=== PATIENT | female | born 1955 | race Caucasian/White ===

== ENCOUNTER 2021-01-18 18:58 | Inpatient (IN) | payer MEDICARE ==
[2021-01-18] MEDS ORDERED: Haloperidol Lactate 5 MG/ML SDV IVPUSH ONE (19:53)
[2021-01-18] MEDS ORDERED: Sodium Chloride 0.9% 10 ML Syringe FLUSH PRN (19:53)
[2021-01-18] MEDS ORDERED: Lactated Ringers 1,000 ML IV SCH (20:00)
--- NOTE | 2021-01-18 20:36 | EDM.PDOC ---
ED HPI GENERAL MEDICAL PROBLEM - General Chief Complaint: Wound Recheck Stated Complaint: NAUSEA AND PAIN Time Seen by Provider: 01/18/21 19:52 Source of Information: Reports: Patient History Limitations: Reports: No Limitations - History of Present Illness INITIAL COMMENTS - FREE TEXT/NARRATIVE: Lydia is a 65-year-old female presenting to the ED with intractable dry heaving starting at 1500 hrs. today. Patient's trouble started a week ago when she underwent a colonoscopy last and unfortunately had a perforation of the bowel. She was taken to the OR for exploratory laparotomy and repair of the perforation and a YURI drain was placed in close proximity. The patient reports that today she has had marked increase in serosanguineous drainage from the YURI drain as well as increasing abdominal pain and dry heaving. She is scheduled for a follow-up with Dr. Dos Santos on Friday. Upon arrival to the ED she was dry heaving tenuously, but has not had any emesis. She has been taking oral pain medicine. The patient is currently afebrile. Lower Abdomen Pain Score (Numeric/FACES): 8 - Related Data Allergies Allergy/AdvReac Type Severity Reaction Status Date / Time cat dander Allergy Sneezing Verified 01/18/21 19:34 dust mite Allergy Sneezing Uncoded 01/18/21 19:34 Home Meds: Home Meds Albuterol/Ipratropium [Combivent Respimat] 1 puff INH Q6HR PRN 03/26/19 [History] Furosemide 20 mg PO BID 03/26/19 [History] Levothyroxine Sodium [Synthroid] 150 mcg PO DAILY 03/26/19 [History] Spironolactone [Aldactone] 25 mg PO DAILY 03/26/19 [History] carvediloL [Carvedilol] 25 mg PO BID 03/26/19 [History] Albuterol/Ipratropium [DuoNeb 3.0-0.5 MG/3 ML] 1 dose IH Q6HR PRN 01/08/21 [History] atorvaSTATin [Lipitor] 10 mg PO BEDTIME 01/08/21 [History] lisinopriL [Lisinopril] 1.25 mg PO DAILY 01/08/21 [History] Past Medical History HEENT History: Reports: Impaired Vision Cardiovascular History: Reports: Cardiomyopathy, High Cholesterol, Hypertension, Pacemaker Respiratory History: Reports: COPD Gastrointestinal History: Reports: Chronic Constipation Genitourinary History: Reports: None VASCULAR NEUROLOGIST History: Reports: Musculoskeletal History: Reports: None Endocrine/Metabolic History: Reports: Hypothyroidism - Infectious Disease History Infectious Disease History: Reports: Chicken Pox, Measles, Mumps, Shingles - Past Surgical History HEENT Surgical History: Reports: Oral Surgery Cardiovascular Surgical History: Reports: Pacer Respiratory Surgical History: Reports: None GI Surgical History: Reports: Colonoscopy, Hernia, Inguinal Other GI Surgeries/Procedures: colon perforation Female Surgical History: Reports: Tubal Ligation Endocrine Surgical History: Reports: None Musculoskeletal Surgical History: Reports: Shoulder Replacement Social & Family History - Tobacco Use Tobacco Use Status *Q: Never Tobacco User - Caffeine Use Caffeine Use: Reports: None - Recreational Drug Use Recreational Drug Use: No ED ROS GENERAL - Review of Systems Review Of Systems: See Below Constitutional: Reports: Decreased Appetite HEENT: Reports: No Symptoms Respiratory: Reports: No Symptoms Cardiovascular: Reports: No Symptoms Endocrine: Reports: No Symptoms GI/Abdominal: Reports: Abdominal Pain, Decreased Appetite, Nausea, Vomiting (Dry heaving without emesis), Other (Patient has had 2 loose bowel movements today.) : Reports: No Symptoms Musculoskeletal: Reports: No Symptoms Skin: Reports: No Symptoms Neurological: Reports: No Symptoms Psychiatric: Reports: No Symptoms Hematologic/Lymphatic: Reports: No Symptoms Immunologic: Reports: No Symptoms ED EXAM, GENERAL - Physical Exam Exam: See Below Exam Limited By: No Limitations General Appearance: Alert, Anxious, Moderate Distress Eye Exam: Bilateral Eye: EOMI, PERRL Throat/Mouth: Normal Inspection, Normal Oropharynx, Normal Voice, No Airway Compromise Head: Atraumatic, Normocephalic Neck: Normal Inspection, Supple. No: Lymphadenopathy (R), Lymphadenopathy (L) Respiratory/Chest: No Respiratory Distress, Lungs Clear, Normal Breath Sounds Cardiovascular: Normal Peripheral Pulses, Regular Rate, Rhythm Peripheral Pulses: 2+: Radial (L), Radial (R), Posterior Tibial (L), Posterior Tibial (R) GI/Abdominal: Normal Bowel Sounds, Soft, Guarding, Tender (Diffuse abdominal tenderness), Other (Dressing around the YURI is soiled with serosanguineous fluid. Midline incision of the abdomen is clean, dry, intact). No: Rebound Back Exam: Normal Inspection Extremities: Normal Inspection Neurological: Alert, Oriented, Normal Cognition, No Motor/Sensory Deficits Psychiatric: Normal Affect Skin Exam: Warm, Dry, Wound/Incision (Abdominal incision is clean, dry, intact. YURI drain has serosanguineous drainage in the bulb and on the dressing.) Lymphatic: No Adenopathy Course - Vital Signs Last Recorded V/S: Last Vital Signs Temp 35.9 C L 01/18/21 19:26 Pulse 80 01/18/21 19:26 Resp 20 01/18/21 19:26 BP 136/77 01/18/21 19:26 Pulse Ox 97 01/18/21 19:26 - Orders/Labs/Meds Orders: Active Orders 24 hr Category Date Time Status Lactated Ringers [Ringers, Lactated] 1,000 ml Med 01/18/21 20:00 Active IV ASDIRECTED Sodium Chloride 0.9% [Saline Flush] Med 01/18/21 19:53 Active 10 ml FLUSH ASDIRECTED PRN Saline Lock Insert [OM.PC] Routine Oth 01/18/21 19:53 Ordered Medication Orders Lactated Ringer's (Ringers, Lactated) 1,000 mls @ 999 mls/hr IV ASDIRECTED ADE Last Admin: 01/18/21 20:08 Dose: 999 mls/hr Documented by: JUDAH Sodium Chloride (Sodium Chloride 0.9% 10 Ml Syringe) 10 ml FLUSH ASDIRECTED PRN PRN Reason: Keep Vein Open Last Admin: 01/18/21 20:08 Dose: 10 ml Documented by: JUDAH Labs: Laboratory Tests 01/18/21 01/18/21 Range/Units 20:09 20:09 WBC 15.3 H (4.5-11.0) K/uL RBC 4.10 (3.30-5.50) M/uL Hgb 13.0 (12.0-15.0) g/dL Hct 39.7 (36.0-48.0) % MCV 97 (80-98) fL MCH 32 H (27-31) pg MCHC 33 (32-36) % Plt Count 530 H (150-400) K/uL Neut % (Auto) 87.6 H (36-66) % Lymph % (Auto) 6.4 L (24-44) % [place] % (Auto) 5.8 (2-6) % Eos % (Auto) 0.1 L (2-4) % Baso % (Auto) 0.1 (0-1) % Sodium 139 L (140-148) mmol/L Potassium 3.6 (3.6-5.2) mmol/L Chloride 98 L (100-108) mmol/L Carbon Dioxide 30 (21-32) mmol/L Anion Gap 14.6 H (5.0-14.0) mmol/L BUN 11 (7-18) mg/dL Creatinine 1.0 (0.6-1.0) mg/dL Est Cr Clr Drug Dosing 48.43 mL/min Estimated GFR (MDRD) 56 L (>60) Glucose 155 H (74-106) mg/dL Calcium 8.9 (8.5-10.1) mg/dL Total Bilirubin 0.7 (0.2-1.0) mg/dL AST 16 (15-37) U/L ALT 15 (12-78) U/L Alkaline Phosphatase 86 (46-116) U/L C-Reactive Protein 23.90 H (0.0-0.3) mg/dL Total Protein 6.5 (6.4-8.2) g/dL Albumin 2.5 L (3.4-5.0) g/dL Globulin 4.0 H (2.3-3.5) g/dL Albumin/Globulin Ratio 0.6 L (1.2-2.2) Lipase 53 L (73-393) U/L Meds: Medications Generic Name Dose Route Start Last Admin Trade Name Freq PRN Reason Stop Dose Admin Lactated Ringer's 1,000 mls @ 999 mls/hr 01/18/21 20:00 01/18/21 20:08 Ringers, Lactated IV 999 mls/hr ASDIRECTED ADE Administration Sodium Chloride 10 ml 01/18/21 19:53 01/18/21 20:08 Sodium Chloride 0.9% 10 Ml Syringe FLUSH 10 ml ASDIRECTED PRN Administration Keep Vein Open Discontinued Medications Generic Name Dose Route Start Last Admin Trade Name Freq PRN Reason Stop Dose Admin Haloperidol Lactate 5 mg 01/18/21 19:53 01/18/21 20:08 Haloperidol Lactate 5 Mg/Ml Sdv IVPUSH 01/18/21 19:54 5 mg ONETIME ONE Administration - Re-Assessments/Exams Free Text/Narrative Re-Assessment/Exam: 01/18/21 21:02 I discussed the case with Dr. Dos Santos who will admit the patient and follow-up with her in the morning. Her labs remain relatively similar to when she was hospitalized on Friday. She did receive Haldol 5 mg IV push and a liter of LR with marked improvement in her intractable dry heaving. Departure - Departure Time of Disposition: 20:58 Disposition: Admitted As Inpatient 66 Clinical Impression: Large bowel perforation Intractable vomiting Qualifiers: Vomiting type: unspecified Nausea presence: with nausea Qualified Code(s): R11.2 - Nausea with vomiting, unspecified - Discharge Information Referrals: Lucía Funes MD [Primary Care Provider] - Forms: ED Department Discharge Sepsis Event Note (ED) - Evaluation Sepsis Screening Result: No Definite Risk - Focused Exam Vital Signs: Vital Signs Temp Pulse Resp BP Pulse Ox 01/18/21 19:26 35.9 C L 80 20 136/77 97 - Problem List & Annotations (1) Intractable vomiting SNOMED Code(s): 094068876 Code(s): R11.10 - VOMITING, UNSPECIFIED Status: Acute Priority: Medium Current Visit: Yes Qualifiers: Vomiting type: unspecified Nausea presence: with nausea Qualified Code(s): R11.2 - Nausea with vomiting, unspecified (2) Large bowel perforation SNOMED Code(s): 238172524 Code(s): K63.1 - PERFORATION OF INTESTINE (NONTRAUMATIC) Status: Acute Priority: Medium Current Visit: Yes - Problem List Review Problem List Initiated/Reviewed/Updated: Yes - My Orders Last 24 Hours: My Active Orders 01/18/21 19:53 Sodium Chloride 0.9% [Saline Flush] 10 ml FLUSH ASDIRECTED PRN Saline Lock Insert [OM.PC] Routine 01/18/21 20:00 Lactated Ringers [Ringers, Lactated] 1,000 ml IV ASDIRECTED - Assessment/Plan Last 24 Hours: My Active Orders 01/18/21 19:53 Sodium Chloride 0.9% [Saline Flush] 10 ml FLUSH ASDIRECTED PRN Saline Lock Insert [OM.PC] Routine 01/18/21 20:00 Lactated Ringers [Ringers, Lactated] 1,000 ml IV ASDIRECTED
[2021-01-18] MEDS ORDERED: Scopolamine 1.5 MG Transdermal Patch TOP PRN (21:32)
[2021-01-18] MEDS ORDERED: Ondansetron 4 MG/2 ML SDV IVPUSH PRN (21:32)
[2021-01-18] MEDS ORDERED: Promethazine 25 MG/ML SDV IV PRN (21:33)
[2021-01-18] MEDS ORDERED: diphenhydrAMINE 25 MG Cap PO PRN (21:35)
[2021-01-18] MEDS ORDERED: diphenhydrAMINE 50 MG/ML SDV IVPUSH PRN (21:35)
[2021-01-18] MEDS ORDERED: Nicotine 14 MG/24 Hr Patch TRDERM PRN (21:36)
[2021-01-18] MEDS: Sodium Chloride 0.9% 1,000 ML IV SCH (21:54)
[2021-01-18] MEDS: Piperacillin/Tazobactam 3.375 GM in Sodium Chloride 0.9% 50 ML IV SCH (22:13)
[2021-01-18] MEDS: Morphine 4 MG/ML Syringe IVPUSH PRN (22:54)
[2021-01-18] MEDS ORDERED: Iopamidol 612 MG/ML 50 ML SDV ONE (23:51)
[2021-01-19] MEDS: Morphine 4 MG/ML Syringe IVPUSH PRN ×6 (03:11→12:44)
[2021-01-19] MEDS: Piperacillin/Tazobactam 3.375 GM in Sodium Chloride 0.9% 50 ML IV SCH (03:18)
[2021-01-19] MEDS ORDERED: Iopamidol 612 MG/ML 50 ML SDV PO ONE (03:30)
[2021-01-19] MEDS ORDERED: Iopamidol 612 MG/ML 100 ML Bottle IV STA (04:48)
[2021-01-19] MEDS ORDERED: Sodium Chloride 0.9% 71 ML IV STA (04:48)
--- NOTE | 2021-01-19 06:06 | CRLCT ---
For Patients: As a result of the Century Cures Act, medical imaging exams and procedure reports are released immediately into your electronic medical record. You may view this report before your referring provider. If you have questions, please contact your health care provider. INDICATION: Perforation after colonoscopy. TECHNIQUE: CT abdomen and pelvis acquired with 100 cc Isovue-300 IV and oral contrast. COMPARISON: None. FINDINGS: Postsurgical changes present in the area of the sigmoid colon. The colon appears normal in caliber and appearance. There are multiple distended small bowel loops in a pattern suggesting a partial small bowel obstruction. The liver is normal in size, shape and attenuation. Unremarkable gallbladder. No biliary dilatation. The spleen, adrenal glands and pancreas are within normal limits. The kidneys are unremarkable. Pelvic organs are unremarkable. A drainage catheter is in the central abdomen. A 3.5 cm fluid collection is between the suture line in the sigmoid colon and the uterus as demonstrated on series 2, image 114. No other intra-abdominal fluid collection. No sign of oral contrast extravasation. The lung bases are clear. IMPRESSION: 1. Partial small bowel obstruction pattern present. 2. Small 3.5 cm fluid collection is in the pelvis, nonspecific. No free air or oral contrast extravasation. 3. No other acute or significant findings. Please note that all CT scans at this facility use dose modulation, iterative reconstruction, and/or weight-based dosing when appropriate to reduce radiation dose to as low as reasonably achievable. Dictated by Yariel Prado MD @ 01/19/2021 6:05:[address] Yariel Prado @ Jan 19 2021 6:05AM
[2021-01-19] MEDS: Sodium Chloride 0.9% 1,000 ML IV SCH ×2 (06:55→15:52)
[2021-01-19] MEDS: Piperacillin/Tazobactam/Dext 3.375 GM in Premix Bag 1 BAG IV SCH ×3 (09:35→21:04)
[2021-01-19] MEDS ORDERED: Docusate Sodium 100 MG Cap PO PRN (11:10)
[2021-01-19] MEDS ORDERED: Magnesium Hydroxide 400 MG/5 ML Susp 30 ML Cup PO PRN (11:10)
[2021-01-19] MEDS ORDERED: Magnesium Hydroxide 400 MG/5 ML Susp 30 ML Cup PO SCH (11:15)
[2021-01-19] MEDS ORDERED: Docusate Sodium 100 MG Cap PO SCH (11:15)
--- NOTE | 2021-01-19 14:57 | CR ---
Abdomen 2V AP Flat Upright CLINICAL HISTORY: Partial SBO versus ileus FINDINGS: No free air is identified. There is some small bowel distention. There is contrast in the distal small bowel in the right colon. There is also contrast in the bladder from IV contrast. There is a surgical drain in the mid lower abdomen. IMPRESSION: Small bowel and colonic gaseous distention. There is some contrast in the right colon. This may represent postoperative ileus. Continued follow-up recommended
[2021-01-19] MEDS: fentaNYL 100 MCG/2 ML SDV IVPUSH PRN ×4 (15:58→23:36)
[2021-01-20] MEDS: Sodium Chloride 0.9% 1,000 ML IV SCH (00:48)
[2021-01-20] MEDS: fentaNYL 100 MCG/2 ML SDV IVPUSH PRN ×5 (01:46→08:30)
[2021-01-20] MEDS: Piperacillin/Tazobactam/Dext 3.375 GM in Premix Bag 1 BAG IV SCH ×2 (03:27→08:19)
--- NOTE | 2021-01-22 08:04 | PN ---
DATE OF SERVICE: 01/20/2021 SUBJECTIVE: The patient is doing very well today. Pain is well controlled. No nausea, vomiting, shortness of breath, or chest pain. She is having multiple bowel movements. OBJECTIVE: VITAL SIGNS: She is afebrile. CARDIOVASCULAR: Regular rhythm and rate. RESPIRATORY: Lungs clear to auscultation bilaterally. SKIN: Incision healing well. ABDOMEN: Nontender, nondistended. ASSESSMENT AND PLAN: The patient will be discharged today. Please see discharge summary for further details. Jonah Dos Santos MD /[id number]
--- NOTE | 2021-01-22 13:26 | DISCH ---
REASON FOR ADMISSION: Abdominal pain. HOSPITAL COURSE: This is a pleasant 65-year-old female who was originally hospitalized for a colon resection. The patient left against medical advice, and returned with nausea. She had a CT scan, which suggested an ileus. This has subsequently resolved. The patient is having multiple bowel movements per day which are well formed. She has no nausea, vomiting, shortness of breath, or chest pain. She did have a slightly elevated white blood cell count and was treated with IV antibiotics, and will be sent home on p.o. antibiotics. FOLLOWUP: On Friday. ACTIVITY: No lifting greater than 30 pounds for 20 more days. Walking and other activities encouraged. The patient will be getting a small amount of [place] today. /[id number]
== END 2021-01-20 09:13 | disposition home or self-care (01) | DRG 394 ==
LOC: JP.ED 18:58 → JP.ICU 20:58
PROVIDERS: ADMIT Surgery; ATTEND Surgery
DX: K63.1 Perforation of intestine (nontraumatic) (principal); R19.8 Other specified symptoms and signs involving the digestive system and abdomen; K91.89 Other postprocedural complications and disorders of digestive system; K56.7 Ileus, unspecified; H54.7 Unspecified visual loss; I42.9 Cardiomyopathy, unspecified; E78.00 Pure hypercholesterolemia, unspecified; I10 Essential (primary) hypertension; J44.9 Chronic obstructive pulmonary disease, unspecified; K59.09 Other constipation; E03.9 Hypothyroidism, unspecified; Z96.619 Presence of unspecified artificial shoulder joint; R11.2 Nausea with vomiting, unspecified; Z95.0 Presence of cardiac pacemaker; Z98.51 Tubal ligation status; Z91.048 Other nonmedicinal substance allergy status; Z79.890 Hormone replacement therapy; Z79.899 Other long term (current) drug therapy
CPT/HCPCS: 36415; 80053; 83690; 85025; 86140; 96374; 99285; J1630; J7120; 74019; 74019-26; 74177; 80048; 96375; 99284; A9270-GY; J2270; J2405; J2543; J3010; J7030; Q9967

== ENCOUNTER 2021-07-25 05:22 | Inpatient (IN) | payer MEDICARE ==
[2021-07-25] MEDS ORDERED: Celecoxib 200 MG Cap PO ONE (06:00)
[2021-07-25] MEDS ORDERED: Acetaminophen 500 MG Tab PO ONE (06:00)
[2021-07-25] MEDS ORDERED: Dextrose 5%-Lactated Ringers 1,000 ML IV SCH (06:30)
[2021-07-25] MEDS ORDERED: Lidocaine 1% with EPINEPHrine 1:100,000 50 ML MDV ONE (06:32)
[2021-07-25] MEDS ORDERED: Bupivacaine 0.5% 50 ML MDV ONE (06:32)
[2021-07-25] MEDS ORDERED: Meropenem 500 MG SDV ONE (06:32)
[2021-07-25] MEDS ORDERED: Albuterol/Ipratropium 3.0-0.5 MG/3 ML Neb Soln NEB ONE (07:00)
[2021-07-25] MEDS ORDERED: fentaNYL 250 MCG/5 ML SDV ONE (07:09)
[2021-07-25] MEDS ORDERED: Rocuronium 50 MG/5 ML Vial ONE (07:11)
[2021-07-25] MEDS ORDERED: Dexamethasone 4 MG/ML SDV ONE (07:11)
[2021-07-25] MEDS ORDERED: Neostigmine Methylsulfate 1 MG/ML 5 ML Syringe ONE (07:11)
[2021-07-25] MEDS ORDERED: Glycopyrrolate 0.2 MG/ML 5 ML MDV ONE (07:11)
[2021-07-25] MEDS ORDERED: Ondansetron 4 MG/2 ML SDV ONE (07:11)
[2021-07-25] MEDS ORDERED: Succinylcholine 200 MG/10 ML MDV ONE (07:11)
[2021-07-25] MEDS ORDERED: Propofol 200 MG/20 ML SDV ONE (07:11)
[2021-07-25] MEDS ORDERED: HYDROmorphone/Normal Saline 15 MG/30 ML PCA IV PRN (07:23)
[2021-07-25] MEDS ORDERED: Naloxone 0.4 MG/ML SDV IVPUSH PRN (07:23)
[2021-07-25] MEDS ORDERED: ceFAZolin 2 GM in Premix Bag 1 BAG IV ONE (07:30)
[2021-07-25] MEDS ORDERED: Ketamine 15 MG in Sodium Chloride 0.9% 19.85 ML IV SCH (07:30)
[2021-07-25] MEDS ORDERED: Ketamine 500 MG/5 ML MDV IV SCH (07:30)
[2021-07-25] MEDS ORDERED: Ropivacaine 34 ML, dexAMETHasone 8 MG, EPINEPHrine 0.4 MG, Sodium Chloride 0.9% 43.6 ML NERVRT SCH ×4 (07:30)
[2021-07-25] MEDS: Dextrose 5%-Lactated Ringers 1,000 ML IV SCH (09:50)
[2021-07-25] MEDS ORDERED: Cyclobenzaprine 10 MG Tab PO PRN (09:58)
[2021-07-25] MEDS ORDERED: Metoclopramide 10 MG/2 ML SDV IVPUSH PRN (10:00)
[2021-07-25] MEDS ORDERED: Labetalol 20 MG/4 ML Syringe IVPUSH PRN (10:00)
[2021-07-25] MEDS ORDERED: diphenhydrAMINE 50 MG/ML SDV IVPUSH PRN (10:00)
[2021-07-25] MEDS ORDERED: Acetaminophen 500 MG Tab PO PRN (10:00)
[2021-07-25] MEDS ORDERED: hydrOXYzine HCL 100 MG/2 ML SDV IM PRN (10:00)
[2021-07-25] MEDS ORDERED: Ondansetron 4 MG/2 ML SDV IVPUSH PRN (10:00)
[2021-07-25] MEDS ORDERED: Albuterol/Ipratropium 3.0-0.5 MG/3 ML Neb Soln INH PRN (10:08)
[2021-07-25] MEDS ORDERED: Non-Formulary Medication 1 Each IV ONE (10:22)
[2021-07-25] MEDS: Albuterol/Ipratropium 3.0-0.5 MG/3 ML Neb Soln INH SCH ×3 (10:45→20:58)
[2021-07-25] MEDS ORDERED: Pantoprazole 40 MG Vial IVPUSH SCH (12:00)
[2021-07-25] MEDS: Spironolactone 25 MG Tab PO SCH (12:06)
[2021-07-25] MEDS: Furosemide 40 MG Tab PO SCH (12:08)
[2021-07-25] MEDS: Lisinopril 2.5 MG Tab PO SCH (12:08)
[2021-07-25] MEDS: Acetaminophen 500 MG Tab PO SCH ×2 (14:04→21:00)
[2021-07-25] MEDS: ceFAZolin 2 GM in Premix Bag 1 BAG IV SCH ×2 (14:05→21:00)
[2021-07-25] MEDS ORDERED: MVI, Adult with Vitamin K 10 ML, Thiamine 200 MG, Zinc/Copper/Manganese/Selenium 1 ML i... IV SCH ×4 (16:00)
[2021-07-25] MEDS: Carvedilol 12.5 MG Tab PO SCH (17:28)
[2021-07-25] MEDS ORDERED: atorvaSTATin 10 MG Tab PO SCH (21:00)
[2021-07-26] MEDS: Dextrose 5%-Lactated Ringers 1,000 ML IV SCH (00:02)
[2021-07-26] MEDS: ceFAZolin 2 GM in Premix Bag 1 BAG IV SCH (05:19)
[2021-07-26] MEDS: Acetaminophen 500 MG Tab PO SCH (05:20)
[2021-07-26] MEDS: Albuterol/Ipratropium 3.0-0.5 MG/3 ML Neb Soln INH SCH (07:05)
[2021-07-26] MEDS ORDERED: oxyCODONE 5 MG Tab PO PRN (07:09)
[2021-07-26] MEDS: Furosemide 40 MG Tab PO SCH (08:36)
[2021-07-26] MEDS: Carvedilol 12.5 MG Tab PO SCH (08:36)
[2021-07-26] MEDS: Spironolactone 25 MG Tab PO SCH (08:36)
[2021-07-26] MEDS: Lisinopril 2.5 MG Tab PO SCH (08:37)
[2021-07-26] MEDS ORDERED: Celecoxib 200 MG Cap PO SCH (09:00)
[2021-07-26] MEDS ORDERED: Pantoprazole 40 MG Vial IVPUSH SCH (09:00)
--- NOTE | 2021-07-26 10:32 | DISCH ---
ADMISSION DIAGNOSES: 1. Recurrent incarcerated incisional hernia. 2. Nonischemic cardiomyopathy. 3. Congestive heart failure. 4. Hypothyroidism. 5. Chronic obstructive pulmonary disease. 6. Mixed hyperlipidemia. 7. Aortic valve insufficiency. 8. Essential hypertension. DISCHARGE DIAGNOSES: Exploratory laparotomy with lysis of adhesions: 1. Repair of incarcerated incisional hernia with mesh. 2. Repair of incarcerated umbilical hernia with mesh. 3. Placement of Vicryl mesh. POSTOPERATIVE DIAGNOSES: 1. Recurrent incarcerated incisional hernia. 2. Incarcerated umbilical hernia. 3. Extensive intraabdominal adhesions. Date of procedure: 07/25/2021. Surgeon: Onofre Leung MD HISTORY: Lydia Coon is a 65-year-old female with a recurrent incarcerated incisional hernia. After preoperative evaluation, discussion of possible risks and possible complications, she wished to proceed with surgical procedure. HOSPITAL COURSE: Lydia had her surgery on 07/25/2021. She had no operative complications and requested to be discharged to home on postop day 1. Vital signs were stable. Activity was good. Oral intake 2040 mL. Urine output was 1850 via Chowdary catheter, and at time of dictation, she voided 250 mL. OBJECTIVE: GENERAL: Lydia Coon is a pleasant 65-year-old female. VITAL SIGNS: Height is 5 feet 3.5 inches, weight 148 pounds, BMI is 25.8. TPR is 97.3, 61, 14. Blood pressure 129/73. HEENT: Negative. NECK: Supple. HEART: Regular rate and rhythm. LUNGS: Reveal some rhonchi with coughing. ABDOMEN: Dressing dry and intact. Abdominal binder is on. EXTREMITIES: Without peripheral edema. DISPOSITION: Discharged to home. CONDITION: Stable and improving. FOLLOWUP APPOINTMENT: Geetha Dalton PA-C, on 08/06/2021 at 10:30 a.m. HOME MEDICATIONS: Celebrex 200 mg p.o. b.i.d., #28; oxycodone 5 mg q.6 hours p.r.n. pain, #12; Tylenol 1000 mg q.8 hours scheduled. She is to resume Lipitor 10 mg at bedtime, Coreg 25 mg p.o. b.i.d. with meals, lisinopril 1.25 mg p.o. daily, carvedilol 25 mg p.o. b.i.d., spironolactone 25 mg p.o. daily, levothyroxine 150 mcg p.o. daily, furosemide 20 to 40 mg p.o. b.i.d., DuoNeb 1 dose inhalation every 6 hours p.r.n., Combivent Respimat 1 puff inhalation q.6 hours p.r.n. DIET: Regular diet as tolerated. Drink 8 to 10 glasses of water a day. ACTIVITY: No lifting greater than 10 pounds for 6 weeks. Other activity: Walk 6 times daily inside your home. Driving: Do not drive for 1 week or while on narcotic pain medication. Shower/bathing: May shower. Keep operative site clean and dry. DISCHARGE INSTRUCTIONS: 1. Wear abdominal binder for 6 weeks. 2. Wear the pressure dressing over hernia site until 1st postop appointment. 3. Take off Aquacel dressing on 07/29/2021. Notify provider if any fever, increased pain, swelling, redness, drainage, nausea, vomiting. SPECIAL INSTRUCTION: Use incentive spirometer 10 times every hour while awake. /[id number]
[2021-07-26] MEDS ORDERED: Pantoprazole 40 MG Delayed-Release Granules 1 Packet PO SCH (16:30)
[2021-07-27] MEDS ORDERED: Cyanocobalamin (Vitamin B12) 1,000 MCG/ML SDV IM ONE (09:00)
--- NOTE | 2021-08-05 09:21 | OR ---
DATE OF PROCEDURE: 07/25/2021 SURGEON: Onofre Leung MD PREOPERATIVE DIAGNOSIS: Recurrent incisional hernia. POSTOPERATIVE DIAGNOSES: 1. Recurrent incarcerated incisional hernia. 2. Incarcerated umbilical hernia. 3. Extensive intra-abdominal adhesions. OPERATIVE PROCEDURES: 1. Exploratory laparotomy with lysis of adhesions: a. Repair of recurrent incarcerated incisional hernia with mesh (40568, [id number]). b. Repair of incarcerated umbilical hernia (44527). c. Placement of Vicryl mesh to limit postoperative adhesion between pelvic and abdominal wall and underlying viscera ([id number]). ANESTHESIA: General. ADVISORY SOFTWARE ENGINEER: Geetha Dalton PA-C INDICATIONS FOR PROCEDURE: This is a 65-year-old female presenting with worsening problems with an incisional hernia from a previous upper midline incision. Plan is to proceed with an open repair of this with a mesh technique. Potential risks of the procedure including bleeding, infection, injury to underlying viscera, problems with the hernia recurring, the mesh becoming infected as well as the remote possibility of cardiopulmonary, septic, or hemorrhagic complications leading to were discussed, and the patient wishes to proceed. DETAILS OF PROCEDURE: The patient was taken to the operating room and placed in a supine position. After general endotracheal anesthesia was induced, the abdomen was prepped and draped. A Chowdary catheter was also inserted. Previous upper midline incision was then reused and carried down through the skin and subcutaneous tissue. Hernia sac was then identified and dissected down to the level of the fascia circumferentially. The hernia sac was then entered. It contained some incarcerated omentum, and at one point some incarcerated transverse colon. These were dissected away from the hernia sac, and the hernia sac was then with the mesh. Below this, the patient also was noted to have a separate incarcerated umbilical hernia which contained some incarcerated omentum. The latter was reduced and the peritoneum was also excised. Some additional adhesions were taken down until there was a clearance of the abdominal wall for placement of mesh. A Ventralex hernia patch measuring 19.6 cm x 24.6 cm was selected at roughly 5 cm intervals around its circumference. 2-0 Vicryl sutures were placed on the polypropylene side of the mesh. The mesh was soaked in antibiotic-containing saline solution. Stab wounds were placed along the incision where the mesh would be pulled up thus providing a wide margin of mesh coverage away from the incision itself. Following this, the mesh was placed in its intraabdominal location. The superior half of the sutures was then pulled up, and the mesh was then pulled up underneath this and Vicryl mesh placed underneath the mesh the abdominal and pelvic wall to limit recurrent adhesion formation. Following this, the remaining sutures to the mesh were pulled up through the abdominal wall and tied. The midline fascia was then approximated with #2 Vicryl stitch. This included some stitches to the underlying umbilical hernia initially which were then continued onto the supraumbilical fascia. Once these were in place, the wound was anesthetized with 1% lidocaine mixed with Marcaine. Prior to closure, the patient also received transverse abdominis plane blocks. The skin and subcutaneous tissues were then closed with 2 layers of 3-0 and 4-0 Vicryl stitch, and the skin with edwina. Dressing was applied. The patient was taken to the recovery room in satisfactory condition. Physician orthodontist assistant, Geetha Dalton, played an essential role in assisting in this case, helping to position the patient, retract structures as needed as well as suturing and cutting sutures when indicated. Her presence improved patient safety and decreased the operative time. Onofre Leung MD /[id number]
== END 2021-07-26 10:01 | disposition home or self-care (01) | DRG 354 ==
LOC: JP.SDS 05:22 → JP.MS 05:22 → JP.SDSSCHI 05:23 → EDSTATUS 07:15 → JP.MS 09:45
PROVIDERS: ADMIT Surgery; ATTEND Surgery
PROC: 0WUF0JZ Supplement Abdominal Wall with Synthetic Substitute, Open Approach (ICD-10-PCS; principal; 2021-07-25)
DX: K43.0 Incisional hernia with obstruction, without gangrene (principal); I42.8 Other cardiomyopathies; I50.22 Chronic systolic (congestive) heart failure; E03.9 Hypothyroidism, unspecified; J44.9 Chronic obstructive pulmonary disease, unspecified; I11.0 Hypertensive heart disease with heart failure; E78.2 Mixed hyperlipidemia; I35.1 Nonrheumatic aortic (valve) insufficiency; K42.0 Umbilical hernia with obstruction, without gangrene; Z96.611 Presence of right artificial shoulder joint; K66.0 Peritoneal adhesions (postprocedural) (postinfection); F17.210 Nicotine dependence, cigarettes, uncomplicated; Z95.810 Presence of automatic (implantable) cardiac defibrillator; Z98.51 Tubal ligation status; Z87.19 Personal history of other diseases of the digestive system; Z79.890 Hormone replacement therapy; Z98.890 Other specified postprocedural states; Z90.89 Acquired absence of other organs; Z79.82 Long term (current) use of aspirin; Z79.899 Other long term (current) drug therapy; Z88.8 Allergy status to other drugs, medicaments and biological substances
CPT/HCPCS: 36415; 80053; 83735; 83880; 84100; 85025; 88302; 94640; A9270-GY; C1713; C1781; C9113; J0171; J0330; J0690; J1100; J1170; J2020; J2185; J2405; J2704; J2710; J2795; J3010; J3411; J3490; J7121; J7620-GY